=== PATIENT | female | born 2000 | race Caucasian/White ===

== ENCOUNTER 2022-06-21 11:58 | Emergency (ER) | payer MEDICAID, SELFPAY ==
[2022-06-21] VITALS (9 sets, daily range): BP systolic 122–144; BP diastolic 68–100; PULSE 79–87; RESP 18; TEMP 36.1; O2SAT 94–98; BMI 37.5
--- NOTE | 2022-06-21 12:25 | ED.SOB ---
HPI - SOB/Dyspnea General Chief Complaint: Shortness of Breath/Dyspnea Stated Complaint: Short of breath Time Seen by Provider: 06/21/22 12:10 History of Present Illness HPI Narrative: This 22-year-old female comes in reporting shortness of breath that came on rather suddenly yesterday. She does not feel like she has an infection but does have an occasional cough with some mucus production. She states that she had similar symptoms about 3 months ago and received prescription for a steroid, albuterol, and an antibiotic. Her symptoms improved while taking these medicines but then she began to have some shortness of breath where she hears wheezes at times thereafter. She does have an albuterol inhaler and states that she is using it a couple times a day at least. She is not a smoker. She does not report any fevers or nasal congestion. Related Data Home Medications Medication Instructions Recorded Confirmed No Known Home Medications 06/21/22 06/21/22 Previous Rx's Medication Instructions Recorded albuterol sulfate 90 mcg/actuation 2 inh inhalation Q4-6H PRN #1 ea 06/21/22 breath activated powder inhaler fluticasone 250 mcg-salmeterol 50 1 inh inhalation BID #1 ea 06/21/22 mcg/dose blistr powdr for inhalation (Advair Diskus) methylprednisolone 4 mg tablets in See Rx Instructions PO .COMPLEX 06/21/22 a dose pack (Medrol (Kyle)) #21 ea Allergies Allergy/AdvReac Type Severity Reaction Status Date / Time No Known Drug Allergies Allergy Verified 06/21/22 12:08 Review of Systems Status of ROS: Reports: 10 or more systems reviewed and unremarkable except as noted in History and below Narrative: Constitutional: No fevers, no weight gain or loss. Eyes: No discharge. No vision changes. HENT: No congestion, no sore throat, no ear pain. Cardiovascular: No chest pain, no palpitations. Respiratory: Shortness of breath. Wheezes. Occasional cough. Gastrointestinal: No abdominal pain, no vomiting, no diarrhea. Genitourinary: No dysuria, no hematuria. Musculoskeletal: Normal range of motion. Skin: No rashes, no pruritis. Neurological: No dizziness, weakness, sensory change, speech change. Endo/Heme/Allergies: No bruising or bleeding. No polydipsia. Pysch: no suicidality, no anxiety, no insomnia. All other systems reviewed and are negative. [facility] Social History Smoking Status: Unknown if ever smoked Exam Narrative: Exam Narrative: Constitutional: Well-developed, well-nourished, no acute distress. HEENT: Normocephalic, atraumatic. Neck: Normal range of motion. Nontender. Supple. Heart: Regular. No murmurs. Normal rate. Intact distal pulses. Lungs: Bilateral expiratory wheezes. No use of accessory muscles for breathing. Abdomen: Normal bowel sounds. Nontender. No rebound tenderness. Genitalia: Deferred. Back: No midline tenderness. Normal range of motion. Extremities: Normal range of motion. No injury. Skin: Intact. No rash. Warm. No erythema or pallor. Neurologic: No altered sensation. No weakness. Alert and oriented. Psychiatric: No suicidality. No anxiety or depression. No insomnia. Nursing notes and vitals signs are reviewed. Const: Vital Signs, click to edit/add: Vital Signs - 24 hr 06/21/22 12:05 06/21/22 12:28 06/21/22 12:30 Temperature 96.9 F L Pulse Rate 81 79 Pulse Rate [Right Pulse Oximeter] 87 Respiratory Rate 18 Blood Pressure Blood Pressure [Ri ght Upper Arm] 144/100 H Pulse Oximetry 95 94 96 Oxygen Delivery Me thod Room Air 06/21/22 12:31 06/21/22 12:32 06/21/22 12:45 Temperature Pulse Rate 81 85 87 Pulse Rate [Right Pulse Oximeter] Respiratory Rate Blood Pressure 128/86 Blood Pressure [Ri ght Upper Arm] Pulse Oximetry 98 98 96 Oxygen Delivery Me thod Course Vital Signs Vital signs: Initial Vital Signs Temperature 96.9 F L 06/21/22 12:05 Temperature Source Temporal Artery Scan 06/21/22 12:05 Pulse Rate 87 06/21/22 12:05 Respiratory Rate 18 06/21/22 12:05 Blood Pressure 144/100 H 06/21/22 12:05 Blood Pressure Mean 114 06/21/22 12:05 Blood Pressure Position Sitting 06/21/22 12:05 Pulse Oximetry 95 06/21/22 12:05 Oxygen Delivery Method 06/21/22 12:05 Vital Signs Temperature 96.9 F L 06/21/22 12:05 Pulse Rate 87 06/21/22 12:05 Respiratory Rate 18 06/21/22 12:05 Blood Pressure 144/100 H 06/21/22 12:05 Pulse Oximetry 95 06/21/22 12:05 Oxygen Delivery Method 06/21/22 12:05 Temperature 96.9 F L 06/21/22 12:05 Pulse Rate 87 06/21/22 12:45 Respiratory Rate 18 06/21/22 12:05 Blood Pressure 128/86 06/21/22 12:31 Pulse Oximetry 96 06/21/22 12:45 Oxygen Delivery Method 06/21/22 12:05 MDM - SOB/Dyspnea MDM Narrative Medical decision making narrative: This patient comes in with shortness of breath as described above. She has been using an albuterol inhaler at least twice a day for the past 2 or 3 months. She is showing signs of severe persistent asthma. She is not on any preventative medications. She received an oral dose of dexamethasone 10 mg and a DuoNeb. She states that the DuoNeb helped her to breathe better but she feels like she is wheezing more after receiving it. On repeat auscultatory exam there are bilateral wheezes but she is moving air nicely and has normal vital signs. I stressed the importance of being on a preventative medicine as she is using her albuterol frequently without any such preventative treatment. She received a prescription for Advair, Medrol Dosepak, and albuterol. I advised her to follow-up with her primary physician. Discharge Plan Discharge Clinical Impression: Asthma with acute exacerbation Patient Disposition: Home, Self-Care Condition: Improved Additional Instructions: Take medications as needed and indicated. Follow up with MD for ongoing management. Return if worsening. Prescriptions: New methylprednisolone [Medrol (Kyle)] 4 mg tablets,dose pack See Rx Instructions .ROUTE .COMPLEX Qty: 21 1RF Rx Instructions: orally per package directions albuterol sulfate 90 mcg/actuation aerosol powdr breath activated 2 inh inhalation Q4-6H PRNQty: 1 0RF fluticasone propion-salmeterol [Advair Diskus] 250-50 mcg/dose blister with device 1 inh inhalation BID Qty: 1 2RF No Action No Known Home Medications Follow Up/Referrals: Provider,Not a Local [Primary Care Provider] - Stand Alone Forms: [employer] Info Instructions
[2022-06-21] MEDS: IPRAT-ALBUT 0.5-2.5 MG/3 ML NEB 1 NEB IH (12:31)
[2022-06-21] MEDS: dexAMETHasone 10 MG/ML inj PO (12:47)
== END 2022-06-21 13:29 | disposition home or self-care (01) ==
PROVIDERS: Emergency Provider Emergency Medicine Emergency Medical Services
DX: J45.901 Unspecified asthma with (acute) exacerbation (principal)
CPT/HCPCS: 94640; 99283; 99284; J1100

== ENCOUNTER 2022-11-06 10:25 | Outpatient (CLI) | payer OTHER, MEDICAID, SELFPAY | END 2022-11-06 10:26 | disposition home or self-care (01) | PROVIDERS: Visit Provider Family Medicine | DX: S09.90XA Unspecified injury of head, initial encounter (principal); V49.50XA Passenger injured in collision with unspecified motor vehicles in traffic accident, initial encounter; Y92.410 Unspecified street and highway as the place of occurrence of the external cause | CPT/HCPCS: A0425; A0427 ==